=== PATIENT | female | born 1955 | race American Indian/Alaskan Native ===

== ENCOUNTER 2016-12-15 08:06 | Outpatient (CLI) | payer OTHER ==
--- NOTE | 2016-12-15 09:12 | Mammography Report ---
BILATERAL MAMMOGRAM with CAD: HISTORY: Cancer screening. Comparison study is dated December 11, 2015. FINDINGS: There are scattered fibroglandular densities (approximately 25%-50% glandular). No mass, distortion, suspicious calcification, or skin change is seen. A circumscribed stable nodule in the right upper outer quadrant is noted. IMPRESSION: Negative mammogram. There is no mammographic evidence of malignancy. RECOMMENDATION: Follow-up per ACS guidelines. BI-RADS CATEGORY: 1 = Negative ACR BI-RADS MAMMOGRAPHIC CODES: 0 = Needs additional imaging evaluation; 1 = Negative; 2 = Benign; 3 = Probably benign; 4 = Suspicious; 5 = Malignant; 6 = Known biopsy-proven malignancy COMMENT: 1. Dense breast tissue, i.e., adenosis, fibrocystic changes, etc., may obscure an underlying neoplasm. 2. Approximately 10% of cancers are not detected with mammography. 3. A negative mammography report should not delay biopsy if a clinically suspicious mass is present. COMMENT: Patient follow-up letters are generated in [employer].
== END 2016-12-15 08:07 | disposition home or self-care (01) ==
LOC: MAMMO 08:06
PROVIDERS: ATTEND Internal Medicine
DX: Z12.31 Encounter for screening mammogram for malignant neoplasm of breast (principal)
CPT/HCPCS: 77067; G0202

== ENCOUNTER 2017-12-16 07:06 | Outpatient (CLI) | payer OTHER ==
--- NOTE | 2017-12-16 14:55 | Mammography Report ---
BILATERAL DIGITAL SCREENING MAMMOGRAM with CAD: 12/16/17 07:06:00 CLINICAL: Routine screening. COMPARISON:12/15/16 FINDINGS: The breasts are almost entirely fatty. No mass, architectural distortion or suspicious calcifications. IMPRESSION: No mammographic evidence of malignancy. BI-RADS CATEGORY: 1 - - Negative RECOMMENDATION: Routine mammographic screening in one year. COMMENT: Patient follow-up letters are generated by our [employer] application.
== END 2017-12-16 07:07 | disposition home or self-care (01) ==
LOC: MAMMO 07:06
PROVIDERS: ATTEND Internal Medicine
DX: Z12.31 Encounter for screening mammogram for malignant neoplasm of breast (principal)
CPT/HCPCS: 77067

== ENCOUNTER 2018-12-20 07:26 | Outpatient (CLI) | payer OTHER ==
--- NOTE | 2018-12-20 08:49 | Mammography Report ---
BILATERAL DIGITAL SCREENING MAMMOGRAM WITH CAD INDICATION: Routine screening mammography. TECHNIQUE: Digital bilateral 2D mammography was obtained in the craniocaudal and mediolateral obliq ue projections. This examination was interpreted with the benefit of Computer-Aided Detection analysi s. COMPARISON: 12/16/2017 FINDINGS: Breast Density: The breasts are almost entirely fatty. No mass, architectural distortion or suspicious calcifications. IMPRESSION:No mammographic evidence of malignancy. BI-RADS Category 1: Negative. No mammographic evidence of malignancy. Recommend routine screening m ammography in one year. A "normal" or negative report should not discourage follow up or biopsy of a clinically significant f inding. A written summary of these findings will be mailed to the patient. The patient will be entered into a mammography reporting system which will generate a reminder letter for the patient's next appointmen t at the appropriate interval. The [employer] recommends yearly mammograms starting at age 40 and continuing as l ayla as a woman is in good health. Breast MRI is recommended for women with an approximate 20-25% or greater lifetime risk of breast cancer, including women with a strong family history of breast or ova debbi cancer or who have been treated for Hodgkin's disease. Signer Name: Saqib Richey MD Signed: 12/20/2018 8:45 AM Workstation Name: [id number]
== END 2018-12-20 07:27 | disposition home or self-care (01) ==
LOC: MAMMO 07:26
PROVIDERS: ATTEND Internal Medicine
DX: Z12.31 Encounter for screening mammogram for malignant neoplasm of breast (principal)
CPT/HCPCS: 77067

== ENCOUNTER 2020-12-25 07:56 | Outpatient (CLI) | payer OTHER ==
--- NOTE | 2020-12-25 10:47 | Mammography Report ---
DIGITAL SCREENING MAMMOGRAM WITH CAD, 12/25/2020 INDICATION: Routine screening mammography. TECHNIQUE: Digital bilateral 2D mammography was obtained in the craniocaudal and mediolateral obliq ue projections. This examination was interpreted with the benefit of Computer-Aided Detection analysi s. COMPARISON: 12/25/2019 FINDINGS: Breast Density: There are scattered areas of fibroglandular density. There is no evidence of dominant mass, suspicious calcifications or architectural distortion in eithe r breast. Small benign-appearing right-sided nodules unchanged. IMPRESSION: Follow up recommendation: Routine yearly BI-RADS Category 2: Benign. A "normal" or negative report should not discourage follow up or biopsy of a clinically significant f inding. A written summary of these findings will be mailed to the patient. The patient will be entered into a mammography reporting system which will generate a reminder letter for the patient's next appointmen t at the appropriate interval. The [employer] recommends yearly mammograms starting at age 40 and continuing as l ayla as a woman is in good health. Breast MRI is recommended for women with an approximate 20-25% or greater lifetime risk of breast cancer, including women with a strong family history of breast or ova debbi cancer or who have been treated for Hodgkin's disease. Signer Name: Kory Munoz MD Signed: 12/25/2020 10:42 AM Workstation Name: [email or web address]
== END 2020-12-25 07:57 | disposition home or self-care (01) ==
LOC: MAMMO 07:56
PROVIDERS: ATTEND Internal Medicine
DX: Z12.31 Encounter for screening mammogram for malignant neoplasm of breast (principal)
CPT/HCPCS: 77067

== ENCOUNTER 2021-12-29 07:01 | Outpatient (CLI) | payer OTHER ==
--- NOTE | 2021-12-30 11:53 | Mammography Report ---
DIGITAL SCREENING MAMMOGRAM WITH CAD, 12/29/2021 CLINICAL INFORMATION / INDICATION: Routine screening mammography TECHNIQUE: Digital 2D mammography was obtained in the craniocaudal and mediolateral oblique projectio ns. This examination was interpreted with the benefit of Computer-Aided Detection analysis. COMPARISON: 12/25/2020 FINDINGS: Breast Density: There are scattered areas of fibroglandular density. No dominant mass, suspicious calcifications, or architectural distortion in either breast. Mild right nodularity is stable. IMPRESSION: No mammographic evidence of malignancy. Follow up recommendation: Routine yearly screening mammogram. BI-RADS Category 2: BENIGN. A "normal" or negative report should not discourage follow up or biopsy of a clinically significant f inding. A written summary of these findings will be mailed to the patient. The patient will be entered into a mammography reporting system which will generate a reminder letter for the patient's next appointmen t at the appropriate interval. The [employer] recommends yearly mammograms starting at age 40 and continuing as l ayla as a woman is in good health. Breast MRI is recommended for women with an approximate 20-25% or greater lifetime risk of breast cancer, including women with a strong family history of breast or ova debbi cancer or who have been treated for Hodgkin's disease. Signer Name: William Echavarria MD Signed: 12/30/2021 11:49 AM Workstation Name: [email or web address]
== END 2021-12-29 07:02 | disposition home or self-care (01) ==
LOC: MAMMO 07:01
DX: Z12.31 Encounter for screening mammogram for malignant neoplasm of breast (principal)
CPT/HCPCS: 77067